=== PATIENT | female | born 1960 | race Caucasian/White ===

== ENCOUNTER 2016-06-28 09:52 | Emergency (ER) | payer OTHER ==
[~2016-06-28] VITALS: Ht 162.6 cm; Wt 95.0 kg
[~2016-06-28 09:52] MED LIST: IBUP600 PO
[2016-06-28 09:57] VITALS: BP 166/94; PULSE 82; RESP 16; TEMP 97.9; O2SAT 94
[2016-06-28 10:02] VITALS: BP 147/83; PULSE 83; RESP 19; O2SAT 97
[2016-06-28] MEDS ORDERED: ALPR0.25 PO (10:02)
--- NOTE | 2016-06-28 10:15 | PD ---
HPI Chief Complaint: Anxiety Time Seen by Provider: 10:01 Travel History International Travel<30 days: No Contact w/Intl Traveler<30days: No Traveled to known affect area: No History of Present Illness HPI 35-year-old female came to the emergency room with history of neck pain and discomfort that started after she woke up at 8:30 this morning. Patient says that yesterday the whole day she worked in the house cleaning quite a bit and thinks that she could have pulled a muscle. After the pain started shortly afterwards she started getting anxious and checked her blood pressure and it was high. Patient does not have history of hypertension and is not on any medications. Minutes later she checked her blood pressure again and it was 185 systolic which made her really concerned and anxious. She decided to go to the fire department which is close to her house but she didn't get anybody to open the door. She called her parents and they brought her to the emergency room. Patient says that she might be stressed out from one of her friends who told her that he was suicidal. Once again patient is not on any medications. She does have prescribed Xanax that was given to her by her primary care last year and she does not take them that often. She took one of those pill prior to coming to the emergency room. Her blood pressure here is 147 systolic and she says she feels much better now and would like to go home. No history of chest pain, dizziness and lightheadedness. Vital signs are stable in ER. [facility] Past Medical History Narrative Medical List of her medical history is reviewed from the nursing note. 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 Reported Meds & Prescriptions Reported Meds & Active Scripts Active Reported Alprazolam 0.25 Mg Tab 0.25 Mg PO Q8H PRN Narrative Medication List of home medications reviewed from the nursing note. Review of Systems Except as stated in HPI: all other systems reviewed are Neg Physical Exam Narrative GENERAL: Awake, alert, anxious but in no obvious distress SKIN: Warm and dry. HEAD: Atraumatic. Normocephalic. EYES: Pupils equal and round. No scleral icterus. No injection or drainage. ENT: No nasal bleeding or discharge. Mucous membranes pink and moist. NECK: Trachea midline. No JVD. No neck stiffness, full range of motion CARDIOVASCULAR: Regular rate and rhythm. No murmur appreciated. RESPIRATORY: No accessory muscle use. Clear to auscultation. Breath sounds equal bilaterally. GASTROINTESTINAL: Abdomen soft, non-tender, nondistended. Hepatic and splenic margins not palpable. MUSCULOSKELETAL: No obvious deformities. No clubbing. No cyanosis. No edema. NEUROLOGICAL: Awake and alert. No obvious cranial nerve deficits. Motor grossly within normal limits. Normal speech. PSYCHIATRIC: Appropriate mood and affect; insight and judgment normal. Data Data Last Documented VS Vital Signs Date Time Temp Pulse Resp B/P Pulse Ox O2 Delivery O2 Flow Rate FiO2 06/28/16 11:00 73 21 133/68 95 06/28/16 09:57 97.9 Room Air Orders Electrocardiogram (06/28/16 ) [facility] Medical Decision Making Medical Screen Exam Complete: Yes Emergency Medical Condition: Yes Medical Record Reviewed: Yes Interpretation(s) Twelve-lead EKG was reviewed by me. Normal sinus rhythm, normal axis, nonspecific ST-T wave changes. Heart rate of 78 bpm. Differential Diagnosis Anxiety, neck strain, essential hypertension , Narrative Course 10:50 AM of asked the patient to follow up with her primary care tomorrow and get blood pressure checked again. Also to ask him to refer her for a stress test. I will discharge her home at this point. Patient has no risk factors for coronary artery disease except for her age. She says she goes to her primary care regularly and has been checked and really. She is not on any medications. Procedures EKG Prior to Arrival: Yes Diagnosis Primary Impression: Neck strain Qualified Code: S16.1XXA - Neck strain, initial encounter Additional Impression: Anxiety attack Referrals: Primary Care Physician 2 days Additional Instructions: Please return to the ER if the condition worsens or any other new concerns. Otherwise follow-up with your primary care in couple days and get your blood pressure rechecked. Also asked came to refer you for a stress test. Disposition: DISCHARGE HOME Condition: Stable Anastasiia Carreno MD Jun 28, 2016 10:15 Anastasiia Carreno MD Jun 28, 2016 10:15
[2016-06-28 11:00] VITALS: BP 133/68; PULSE 73; RESP 21; O2SAT 95
--- NOTE | 2016-06-28 14:40 | EKG ---
Date Performed: 06/28/2016 Time Performed: 10:08:36 PTAGE: 55 years EKG: Sinus rhythm NONSPECIFIC T-WAVE ABNORMALITY Compared to previous tracing, nonspecific changes are slightly more p rominent BORDERLINE ECG PREVIOUS TRACING : 05/13/2014 03.19 DOCTOR: Jose Gamez Interpretating Date/Time 06/28/2016 14:38:55
== END 2016-06-28 12:18 | disposition home or self-care (01) ==
LOC: NEPC 09:52
DX: S16.1XXA Strain of muscle, fascia and tendon at neck level, initial encounter (principal); F41.0 Panic disorder [episodic paroxysmal anxiety]; R94.31 Abnormal electrocardiogram [ECG] [EKG]; X50.9XXA Other and unspecified overexertion or strenuous movements or postures, initial encounter; Y93.E9 Activity, other interior property and clothing maintenance
CPT/HCPCS: 93005